=== PATIENT | female | born 1980 | race African-American/Black ===

== ENCOUNTER 2020-09-22 19:00 | Emergency (ER) | payer MEDICAID, OTHER ==
--- NOTE | 2020-09-22 19:34 | ER Document Report ---
ED Medical Screen (RME) - General Stated Complaint: BACK PAIN, LEFT HAND TINGLING, LIGHT HEADED Time Seen by Provider: 09/22/20 19:29 Primary Care Provider: JANELLE MCDONALD [Primary Care Provider] - Follow up as needed Notes: Patient presents reporting upper back pain that started suddenly this afternoon. Patient states that she felt lightheaded and had left upper extremity tingling and heaviness. Patient states that she has had some pain under the right breast area. Patient states symptoms have been off and on since they started today. Patient denies any cough or cold symptoms. Patient denies any nausea or vomiting. Patient does report a history of hypertension. I have greeted and performed a rapid initial assessment of this patient. A comprehensive ED assessment and evaluation of the patient, analysis of test results and completion of the medical decision making process will be conducted by additional ED providers. Physical Exam - Vital signs Vitals: Temp Pulse Resp BP Pulse Ox 98.2 F 91 16 160/107 H 98 09/22/20 19:07 09/22/20 19:07 09/22/20 19:07 09/22/20 19:07 09/22/20 19:07 - Cardiovascular Rhythm: Regular Heart sounds: S1 appreciated, S2 appreciated - Back Back: Nontender Course - Vital Signs Vital signs: Temp Pulse Resp BP Pulse Ox 98.2 F 91 16 160/107 H 98 09/22/20 19:07 09/22/20 19:07 09/22/20 19:07 09/22/20 19:07 09/22/20 19:07 Doctor's Discharge - Discharge Referrals: JANELLE MCDONALD [Primary Care Provider] - Follow up as needed
--- NOTE | 2020-09-22 21:04 | RADIOLOGY REPORT (SQ) ---
EXAM DESCRIPTION: X-RAY CHEST- One View CLINICAL HISTORY: Chest pain, upper back pain COMPARISON: None available. TECHNIQUE: Single view of the chest. FINDINGS: There are no discrete air space infiltrates, pneumothoraces or pleural effusions. The pulmonary vascularity is normal. The cardiomediastinal silhouette is normal in size. No suspicious lytic or blastic osseous lesions are identified. IMPRESSION: There are no acute lung parenchymal findings.
--- NOTE | 2020-09-23 00:28 | ER Document Report ---
ED General Pain - General Chief Complaint: Back Pain Stated Complaint: BACK PAIN, LEFT HAND TINGLING, LIGHT HEADED Time Seen by Provider: 09/22/20 19:29 Primary Care Provider: JANELLE MCDONALD [NO LOCAL MD] - Follow up as needed Notes: CHIEF COMPLAINT: Back pain and arm numbness HPI: 40-year-old female with history of hypertension presenting for onset of mid upper back pain with some left arm numbness and tingling that began around 4 PM today. Patient was at work denies trauma. No shortness of breath. States occasionally she had some discomfort radiate around under the right breast. No abdominal pain nausea vomiting. No fever. Patient is unsure if her symptoms came from a new nicotine patch that she just increase the dose on ROS: See HPI - all other systems were reviewed and are otherwise negative Constitutional: no fever Eyes: no drainage, no blurred vision ENT: no runny nose, no sore throat Cardiovascular: no chest pain Resp: no SOB, no cough GI: no vomiting, no diarrhea, no abdominal pain : no dysuria Integumentary: no rash Allergy: no hives Musculoskeletal: no extremity pain or swelling, positive upper back pain Neurological: Positive numbness/tingling, no weakness MEDICATIONS: I agree with the patient medications as charted by the RN. ALLERGIES: I agree with the allergies as charted by the RN. PAST MEDICAL HISTORY/PAST SURGICAL HISTORY: Reviewed and agree as charted by RN. SOCIAL HISTORY: Reviewed and agree as charted by RN. FAMILY HISTORY: No significant familial comorbid conditions directly related to patient complaint EXAM: Reviewed vital signs as charted by RN. CONSTITUTIONAL: Alert and oriented and responds appropriately to questions. Well-appearing; well-nourished HEAD: Normocephalic; atraumatic EYES: PERRL; Conjunctivae clear, sclerae non-icteric ENT: normal nose; no rhinorrhea; moist mucous membranes; pharynx without lesions noted, no uvula edema or deviation, no tonsillar hypertrophy, phonation normal NECK: Supple without meningismus; non-tender; no cervical lymphadenopathy, no masses CARD: RRR; no murmurs, no clicks, no rubs, no gallops; symmetric distal pulses RESP: Normal chest excursion without splinting or tachypnea; breath sounds clear and equal bilaterally; no wheezes, no rhonchi, no rales, pulse oximetry 97% on room air not hypoxic ABD/GI: Normal bowel sounds; non-distended; soft, non-tender, no rebound, no guarding; no palpable organomegaly or masses. BACK: The back appears normal and is tender to palpation across the upper thoracic musculature and bilateral trapezius region, there is no CVA tenderness EXT: Normal ROM in all joints; non-tender to palpation; no cyanosis, no effusions, no edema SKIN: Normal color for age and race; warm; dry; good turgor; no acute lesions noted NEURO: Moves all extremities equally; Motor and sensory function intact PSYCH: The patient's mood and manner are appropriate. Grooming and personal hyg iene are appropriate. MDM: 40-year-old female obese, presenting for upper back pain with some numbness tingling into the left arm. Symptoms began about 8 hours ago. No shortness of breath or pleuritic pain suggesting PE. EKG normal sinus rhythm with a ventricular rate of 80, no other visible ectopy, normal EKG. SD 180, QT 400, QTc 462. Interpreted by emergency department physicians. Screening cardiac labs were ordered by triage process - Related Data Allergies/Adverse Reactions: No Known Allergies Allergy (Unverified 09/22/20 19:34) Home Medications: amlodipine Past Medical History - Social History Smoking Status: Current Some Day Smoker Chew tobacco use (# tins/day): No Frequency of alcohol use: None Drug Abuse: None Family History: Reviewed & Not Pertinent Patient has homicidal ideation: No - Past Medical History Cardiac Medical History: Reports: Hx Hypertension Past Surgical History: Reports: Hx Section - x2 Physical Exam - Vital signs Vitals: Temp Pulse Resp BP Pulse Ox 98.2 F 91 16 160/107 H 98 09/22/20 19:07 09/22/20 19:07 09/22/20 19:07 09/22/20 19:07 09/22/20 19:07 Course - Re-evaluation Re-evalutation: 09/23/20 01:28 Remains relatively asymptomatic at this time. Patient's troponin was negative. Heart score of 1. Low risk for ACS. Has reproducible pain across the trapezius region bilaterally. This may be more muscular in nature. Plan for discharge home we will have her follow-up with cardiology given the nature of the complaint patient's hypertension history. 09/23/20 01:29 1 set of cardiac enzymes was obtained given the timeframe of onset of her symptoms to lab draw - Vital Signs Vital signs: Temp Pulse Resp BP Pulse Ox 98.2 F 91 16 160/107 H 98 09/22/20 19:32 09/22/20 19:07 09/22/20 19:07 09/22/20 19:07 09/22/20 19:07 - Laboratory Result Diagrams: 09/23/20 00:09 09/23/20 00:09 Laboratory results interpreted by me: 09/23/20 09/23/20 00:09 00:09 MCV 78 L MCH 25.4 L RDW 16.6 H Alkaline Phosphatase 130 H Discharge - Discharge Clinical Impression: Numbness and tingling in left arm Thoracic back pain Qualifiers: Chronicity: acute Back pain laterality: midline Qualified Code(s): M54.6 - Pain in thoracic spine Condition: Stable Disposition: HOME, SELF-CARE Additional Instructions: Your work-up today including her cardiac lab work did not show acute emergent abnormalities. It is very important that you follow-up closely with cardiology for outpatient stress test and further evaluation of your symptoms. Make sure you take a baby aspirin daily. Return for worsening symptoms. Referrals: WELLINGTON ESTRELLA MD [ACTIVE PROVISIONAL STAFF] - Follow up as needed
[2020-09-23 00:41] LABS: ABSOLUTE BASOPHILS # (AUTO) 0.1 10^3/uL (0.0-0.2); ABSOLUTE EOSINOPHILS # (AUTO) 0.1 10^3/uL (0.0-0.6); ABSOLUTE LYMPHOCYTES (AUTO) 3.1 10^3/uL (0.5-4.7); ABSOLUTE MONOCYTES (AUTO) 0.6 10^3/uL (0.1-1.4); ABSOLUTE NEUT (AUTO) 5.6 10^3/uL (1.7-8.2); BASOPHILS % (AUTO) 1.1 % (0-2); EOSINOPHILS % (AUTO) 1.3 % (0-6); HEMATOCRIT 39.3 % (36.0-47.0); HEMOGLOBIN 12.9 g/dL (12.0-15.5); LYMPHOCYTES % (AUTO) 32.6 % (13-45); MEAN CORPUSCULAR HEMOGLOBIN 25.4 pg (27.0-33.4); MEAN CORPUSCULAR HGB CONC 32.8 g/dL (32.0-36.0); MEAN CORPUSCULAR VOLUME 78 fl (80-97); MONOCYTES % (AUTO) 6.2 % (3-13); PLATELET COUNT 252 10^3/uL (150-450); RED BLOOD COUNT 5.07 10^6/uL (3.72-5.28); RED CELL DISTRIBUTION WIDTH 16.6 % (11.5-14.0); SEGMENTED NEUTROPHILS % (AUTO) 58.8 % (42-78); TOTAL CELLS COUNTED % (AUTO) 100 %; WHITE BLOOD COUNT 9.6 10^3/uL (4.0-10.5)
[2020-09-23 00:48] LABS: ALBUMIN 4.2 g/dL (3.5-5.0); ALKALINE PHOSPHATASE 130 U/L (38-126); ANION GAP 12 (5-19); ASPARTATE AMINO TRANSFERASE 20 U/L (14-36); BILIRUBIN,DIRECT 0.2 mg/dL (0.0-0.4); BILIRUBIN,TOTAL 0.4 mg/dL (0.2-1.3); BLOOD UREA NITROGEN 14 mg/dL (7-20); CALCIUM 9.4 mg/dL (8.4-10.2); CARBON DIOXIDE 26 mmol/L (22-30); CHLORIDE 103 mmol/L (98-107); GLUCOSE 98 mg/dL (75-110); POTASSIUM 3.9 mmol/L (3.6-5.0); TOTAL PROTEIN 7.1 g/dL (6.3-8.2)
[2020-09-23 02:03] VITALS: BP 159/91
--- NOTE | 2020-09-23 07:00 | EKG REPORT ---
SEVERITY:- BORDERLINE ECG - SINUS RHYTHM PROBABLE LEFT ATRIAL ABNORMALITY : Confirmed by: Taz Tucker MD 23-Sep-2020 06:59:53
== END 2020-09-23 01:59 | disposition home or self-care (01) ==
LOC: ER 19:00
DX: M54.6 Pain in thoracic spine (principal); R20.2 Paresthesia of skin; R42 Dizziness and giddiness; I10 Essential (primary) hypertension
CPT/HCPCS: 36415; 71045; 80053; 83690; 84484; 84703; 85025; 93005; 93010; 99285